=== PATIENT | male | born 1965 | race Caucasian/White ===

== ENCOUNTER 2020-03-13 01:59 | Outpatient (CLI) | payer BC, SELFPAY ==
[2020-03-13 16:34] LABS: SARS-CoV-2 RNA PCR Negative
== END 2020-03-13 02:00 | disposition home or self-care (01) ==
LOC: ANHCOVIDDT 02:00
PROVIDERS: PCP Family Medicine; Visit Provider Internal Medicine Gastroenterology
DX: Z01.812 Encounter for preprocedural laboratory examination (principal); Z20.828 Contact with and (suspected) exposure to other viral communicable diseases
CPT/HCPCS: 87635; C9803; U0003

== ENCOUNTER 2020-03-15 01:25 | Day surgery (SDC) | payer BC, SELFPAY ==
[2020-03-07 14:23] VITALS: BMI 34.9
[2020-03-15 10:43] VITALS: BP 118/80; PULSE 84; RESP 18; TEMP 36.9; O2SAT 97; BMI 35.4
--- NOTE | 2020-03-15 11:11 | WPDANESEPPF ---
Anes - Initial Pre Proc Eval Procedure: Operation Date: 03/15/20 11:30 Proposed Procedures p Screening Colonoscopy - Aki Gutierres DO Date/Time: 03/15/20 11:11 Surgeon: Aki Gutierres DO Pre Op Diagnosis: Neoplasm Screening Patient Data Age: 54 Gender: M Height: 5 ft 11 in Weight: 115.3 kg Last Vital Signs Temp 98.5 F 03/15/20 10:43 Pulse 84 03/15/20 10:43 Resp 18 03/15/20 10:43 BP 118/80 03/15/20 10:43 Pulse Ox 97 03/15/20 10:43 Allergies Allergy/AdvReac Type Severity Reaction Status Date / Time glucagon Allergy Intermediate Fainting Verified 03/15/20 10:41 Home Medications Medication Instructions Recorded Confirmed Type allopurinol 300 mg PO DAILY 03/07/20 03/15/20 History metformin 500 mg PO DAILY 03/07/20 03/15/20 History Laboratory Tests 03/15/20 11:08 POC Capillary Glucose Pending Patient hx anesthesia problems: none Family hx anesthesia problems: none [facility] Past Medical History Medical History (Updated 03/15/20 @ 11:11 by Yuval Castellano MD) Diabetes GERD (gastroesophageal reflux disease) Social History Social History Smoking status: Never smoker Alcohol use details: MAY HAVE 1 OR 2 DRINKS PER MONTH Substance use: current Substance use type: marijuana Other substance usage details: HASN'T USED FOR 6 MONTHS Last use: 07/24/19 Living arrangements: with family Spiritual care concerns: No Anes - Eval Final PreProcedure Day of Procedure 03/15/20 11:11 Patient weight: obese Heart: regular rate and rhythm Lungs: clear to auscultation Airway: Mallampati scale class III Neurological: alert and oriented Last oral intake: >/= 8 hours ASA classification: III Emergent: no Anesthetic plan: proceed Anesthesia type and monitoring: general GIVS and standard monitoring Informed Consent: The patient's anesthetic plan and its attendant risks and benefits were discussed with the patient/family/POA. Questions were solicited and answers provided to the satisfaction of the patient/family/POA.
[2020-03-15 11:12] LABS: Glucose Point of Care 95 (65-105)
[2020-03-15] MEDS: LACTATED RINGERS 1,000 ML 150 ML IV CONT (11:13)
--- NOTE | 2020-03-15 11:49 | SUR.PREOP ---
1145 Pt updated on the delay. Dr Gutierres ETA 12 noon. Pt verbalized understanding.
--- NOTE | 2020-03-15 12:09 | PM.IMHP ---
H&P: HPI History of Present Illness Date/Time: 03/15/20 12:09 Chief complaint: Neoplasm Screening Narrative: Reason for visit colonoscopy. This very pleasant gentleman seen in consultation request the primary physician. Impression: Screening colonoscopy. Patient did have some rectal bleeding which is probably perianal in origin. Pre diabetes. Gout. Recommendation: Colonoscopy. History: This very pleasant gentleman is here for screening colonoscopy. He did have an episode of rectal bleeding. His GI review systems otherwise unremarkable. Physical examination: General: very pleasant patient in no acute distress. HEENT: Head was normocephalic sclerae is clear mouth without masses neck was supple. Heart: Rate rhythm regular without S3 or S4. Lungs: CTA. Abdomen: Soft with no guarding or rigidity. Bowel sounds were active. Neurologic: Cranial nerves 2 through 12 intact. No focal defects. No clonus. Musculoskeletal system: Revealed no joint tenderness or swelling no muscle atrophy. Extremities: Reveal no significant edema. Skin: Warm and dry with normal turgor. Mental status: intact. Patient is alert and oriented. Review of Systems Review of Systems: All systems reviewed & are unremarkable except as noted in HPI and below PMFSH Past Medical History Medical History (Updated 03/15/20 @ 11:11 by Yuval Castellano MD) Diabetes GERD (gastroesophageal reflux disease) Social History Social History Smoking status: Never smoker Alcohol use details: MAY HAVE 1 OR 2 DRINKS PER MONTH Substance use: current Substance use type: marijuana Other substance usage details: HASN'T USED FOR 6 MONTHS Last use: 07/24/19 Living arrangements: with family Spiritual care concerns: No Meds Home Medications and Allergies Home Medications Medication Instructions Recorded Confirmed Type allopurinol 300 mg PO DAILY 03/07/20 03/15/20 History metformin 500 mg PO DAILY 03/07/20 03/15/20 History Allergies Allergy/AdvReac Type Severity Reaction Status Date / Time glucagon Allergy Intermediate Fainting Verified 03/15/20 10:41 Vital Signs Vital Signs - 24 hr 03/15/20 10:43 Temperature 36.9 C Pulse Rate 84 Respiratory Rate 18 Blood Pressure 118/80 Pulse Oximetry 97
[2020-03-15 12:42] VITALS: BP 98/58; PULSE 68; RESP 18; O2SAT 96
[2020-03-15 12:52] VITALS: BP 95/62; PULSE 69; RESP 18; O2SAT 97
[2020-03-15 13:02] VITALS: BP 104/69; PULSE 69; RESP 18; O2SAT 97
== END 2020-03-15 13:24 | disposition home or self-care (01) ==
PROVIDERS: PCP Family Medicine; Visit Provider Internal Medicine Gastroenterology
PROC: 0DJD8ZZ Inspection of Lower Intestinal Tract, Via Natural or Artificial Opening Endoscopic (ICD-10-PCS; CPT 45378; principal; 2020-03-15 11:30)
DX: Z12.11 Encounter for screening for malignant neoplasm of colon (principal); D12.4 Benign neoplasm of descending colon; K63.5 Polyp of colon; K62.1 Rectal polyp; K57.30 Diverticulosis of large intestine without perforation or abscess without bleeding; K64.8 Other hemorrhoids; E11.9 Type 2 diabetes mellitus without complications; K21.9 Gastro-esophageal reflux disease without esophagitis; M10.9 Gout, unspecified; Z79.84 Long term (current) use of oral hypoglycemic drugs; E66.9 Obesity, unspecified; Z68.35 Body mass index [BMI] 35.0-35.9, adult
CPT/HCPCS: 45385; 45380; 88305; J2001; J2704; J7120

== ENCOUNTER 2021-11-05 15:51 | Emergency (ER) | payer BC, SELFPAY ==
--- NOTE | ~2021-11-05 | CT_ITS ---
EXAMINATION: CT abdomen pelvis wo con DATE: 11/05/2021 19:39 INDICATION: hematuria , left flank pain TECHNIQUE: Computed tomography (CT) of the abdomen and pelvis was performed without intravenous contr ast. Automated exposure control and iterative reconstruction technique were employed. The dose-length product was 1549.06 mGy-cm. COMPARISON: None FINDINGS: Lower thorax: Unremarkable Liver: Normal. Biliary/Gallbladder: Gallbladder is absent. No bile duct dilation. Pancreas: No mass or duct dilation. Spleen: Normal. Adrenals:No mass. Kidneys: 2 mm nonobstructing left inferior pole calculus. Mild left pelvis and calyceal dilation. GI tract: No bowel dilation. Diverticulosis without diverticulitis. Appendix not visualized. Mesentery/Peritoneum: No ascites, mass, or free air. Retroperitoneum: No mass. Pelvis: Mild prostate enlargement. Mild bladder wall thickening probably due to outlet obstruction. 3 mm stone lodged in the distal left ureter. Soft Tissues: Soft tissues and body wall unremarkable. Bones: No acute osseous finding. IMPRESSION: 3 mm distal left ureteral stone causing mild obstructive uropathy. Reviewed, dictated and finalized at location K.
--- NOTE | ~2021-11-05 | XR_ITS ---
EXAM: XR abdomen/kub 1V HISTORY: hematuria, left flank pain . COMPARISON: None available. FINDINGS: Clear lung bases. Cholecystomy clips. Normal bowel gas pattern. No organomegaly. Punctate, 2 mm stone in the left inferior pole. 3 mm left pelvic aspiration corresponding to the distal left u reteral stone in the prior CT. Regional bones and soft tissues normal for age. IMPRESSION: 3 mm distal left ureteral stone. Nonobstructive 2 mm stone in the left inferior pole. Reviewed, dictated and finalized at location K. IMPRESSION: 3 mm distal left ureteral stone. Nonobstructive 2 mm stone in the l eft inferior pole.
[2021-11-05 16:12] VITALS: BP 126/71; PULSE 83; RESP 21; TEMP 36.2; O2SAT 95
[2021-11-05 16:32] LABS: Basophils Percent Auto 0.4 % (0.2-1.2); Eosinophils Percent Auto 0.3 % (0-4.4); Hematocrit 45.9 % (42.0-52.0); Hemoglobin 14.7 g/dL (14.0-18.0); Immature Granulocyte Absolute 0.03 K/mm3 (0.00-0.031); Immature Granulocyte Percent A 0.3 % (0-0.5); Lymphocytes Absolute Auto 1.12 K/mm3 (0.9-3.2); Lymphocytes Percent Auto 9.8 % (18.3-44.2); Mean Corpuscular Hemoglobin 29.2 pg (26-34); Mean Corpuscular Volume 91.3 fl (80-100); Mean Platelet Volume 9.1 fl (7.4-10.4); Monocytes Absolute Auto 0.4 K/mm3 (0.1-0.6); Monocytes Percent Auto 3.2 % (2.6-8.5); Neutrophils Absolute Auto 9.8 K/mm3 (1.3-6.7); Platelet Count Result 217 k/mm3 (150-375); Red Blood Count 5.03 M/mm3 (4.6-6.20); Red Cell Distribution Width 13.3 % (11.5-14.5); White Blood Count 11.4 K/mm3 (4.5-10.0)
[2021-11-05 16:41] LABS: Alanine Aminotransferase 23 U/L (6-50); Albumin Level 4.8 g/dL (3.5-5.1); Alkaline Phosphatase 90 U/L (38-126); Anion Gap 6 mmol/L (8-16); Aspartate Amino Transferase 30 U/L (17-59); Bilirubin,Total 0.9 mg/dL (0.2-1.3); Blood Urea Nitrogen 16 mg/dL (9-20); Calcium 9.3 mg/dL (8.4-10.2); Carbon Dioxide 27 mmol/L (22-30); Chloride 102 mmol/L (98-107); Estimated CRCL calculation 81 ml/min; Estimated Glomerular Filt Rate > 60; Glucose 138 mg/dL (65-110); Lipase 67 U/L (23-300); Potassium 4.4 mmol/L (3.4-5.0); Sodium 135 mmol/L (137-145)
[2021-11-05 16:54] LABS: Appearance Urine Cloudy (Clear); Bilirubin Urine 1+ (Negative); Blood Urine 3+ (Negative); Color Urine Yellow (Yellow); Glucose Urine UA Negative (Negative); Ketones Urine Negative (Negative); Leukocyte Esterase Ur Negative LEU/UL (Negative); Nitrate Urine Negative (Negative); Protein Urine 1+ mg/dL (Negative); Specific Grav Ur >= 1.030 (1.001-1.035); Urobilinogen Urine 0.2 mg/dL (<2.0); pH Urine 5.5 (5.0-9.0)
[2021-11-05 17:03] LABS: Mucus Urine Rare /lpf
[2021-11-05 17:05] LABS: Add Urine Microscopic? YES
--- NOTE | 2021-11-05 19:31 | ED.ABDPAIN ---
HPI - Abdominal Pain General Chief Complaint: Abdominal Pain Stated Complaint: ABD/BACK PAIN Time Seen by Provider: 11/05/21 18:56 Source: patient and RN notes reviewed Mode of arrival: ambulatory Limitations: no limitations History of Present Illness HPI narrative: This is a 55 year old male who presents for evaluation of left flank pain. He developed pain to his left lower back this morning. HE also reports left lower abdominal pain as well. He states he noticed that his urine was a brown color at that point, but his urine was clear once he arrived to ER. He reports his pain radiated to his left groin. His pain is still present but it has improved. He rates his pain as 3/10 currently. He took ibuprofen this afternoon with some improvement of his pain. He also reports having nausea and vomiting when his pain was severe. Denies history of kidney stone. MD elicited complaint: flank pain Location: L flank Quality: stabbing Radiation: LLQ Migration to: LLQ Associated symptoms: nausea, vomiting and hematuria Treatments prior to arrival: NSAIDs Related Data Allergies Allergy/AdvReac Type Severity Reaction Status Date / Time glucagon Allergy Unknown Verified 11/05/21 20:12 Review of Systems Review of Systems: All systems reviewed & are unremarkable except as noted in HPI and below Constitutional: Constitutional: Denies chills and Denies fever(s) Cardiovascular: Cardiovascular: Denies chest pain Respiratory: Respiratory: Denies cough and Denies dyspnea Gastrointestinal: Gastrointestinal: Reports abdominal pain, Reports nausea and Reports vomiting Genitourinary: Genitourinary: Reports hematuria Musculoskeletal: Musculoskeletal: Reports back pain PMFSH Past Medical History Medical History (Updated 11/06/21 @ 00:00 by Obey Lozoya) Gout Surgical History Surgical History (Updated 11/05/21 @ 19:42 by Bisi Ontiveros MD) History of cholecystectomy Social History Social History (Updated 11/05/21 @ 19:42 by Bisi Ontiveros MD) Smoking status: Never smoker Exam Narrative: GENERAL: Well-appearing, well-nourished, and in no acute distress. HEAD: Normocephalic, atraumatic E THROAT:Mucous membranes moist, Oropharynx normal without erythema, exudate, peritonsillar swelling or fluctuance NECK: Supple, without lymphadenopathy or mass RESPIRATORY: No respiratory distress, Airway patent, Respirations non-labored, Clear to auscultation without rales, rhonchi or wheeze HEART: Regular rate and rhythm. No murmur heard. Normal peripheral pulses. ABDOMEN: Soft, nontender, nondistended, normal active bowel sounds. No masses. No rebound or guarding, No organomegaly. EXTREMITIES: No edema, normal strength with full range of motion. SKIN: Warm, dry, normal color without rash NEURO: Alert and oriented x3. CN 2-12 grossly intact. No focal deficits. PSYCH: Normal mood and affect. : General: No CVA tenderness Course Reevaluation(s) Reevaluation #1: I Discussed with patient that he was found to have 3 mm distal ureteral stone. His pain has improved. I Discussed discharge plan to get pain medication and hydrate. He denies any other questions or concerns. Date: 11/05/21 Time: 22:12 Vital Signs Vital signs: Vital Signs Temperature 97.1 F L 11/05/21 16:12 Pulse Rate 83 11/05/21 16:12 Respiratory Rate 21 H 11/05/21 16:12 Blood Pressure 126/71 11/05/21 16:12 Pulse Oximetry 95 11/05/21 16:12 Temperature 97.1 F L 11/05/21 16:12 Pulse Rate 65 11/05/21 22:27 Respiratory Rate 16 11/05/21 22:27 Blood Pressure 104/65 11/05/21 22:27 Pulse Oximetry 100 11/05/21 22:27 MDM - Abdominal Pain Lab Data Attestation: I reviewed the patient's lab results. Result diagrams: 11/05/21 16:24 11/05/21 16:24 Labs: Lab Results 11/05/21 11/05/21 11/05/21 Range/Units 16:24 16:24 16:33 WBC 11.4 H (4.5-10.0) K/mm3 RBC 5.03 (4.6-6.20) M/mm3 Hgb
[2021-11-05] MEDS: SODIUM CHLORIDE 0.9% IV 1,000 ML 999 ML IV CONT (20:22)
[2021-11-05] MEDS: ONDANSETRON INJ 4 MG/2 ML VIAL IV PUSH (20:22)
[2021-11-05] MEDS: KETOROLAC 30 MG/ML VIAL (*BKC) IV PUSH (21:04)
[2021-11-05] MEDS: TAMSULOSIN HCL 0.4 MG CAPSULE PO (21:06)
[2021-11-05 21:07] VITALS: PULSE 64; RESP 16; O2SAT 100
[2021-11-05 22:27] VITALS: BP 104/65; PULSE 65; RESP 16; O2SAT 100
== END 2021-11-05 22:28 | disposition home or self-care (01) ==
PROVIDERS: Emergency Medicine; Emergency Provider General Practice; PCP Family Medicine
DX: N13.9 Obstructive and reflux uropathy, unspecified (principal); N20.1 Calculus of ureter; N20.0 Calculus of kidney; M10.9 Gout, unspecified
CPT/HCPCS: 36415; 74018; 74176; 80053; 81001; 83690; 85025; 96361; 96365; 96375; 99284; A9270; J0131; J1885; J2405; J7030